=== PATIENT | male | born 1965 | race Two or more races ===

== ENCOUNTER 2018-09-16 10:20 | Emergency (ER) | payer OTHER ==
[~2018-09-16] VITALS: Ht 165.1 cm; Wt 72.6 kg
[~2018-09-16 10:20] MED LIST: SUSTIVA; TRUVADA TABLET1 TAB PO
== END 2018-09-16 14:39 | disposition home or self-care (01) ==
LOC: ER 10:20
DX: B34.9 Viral infection, unspecified (principal)

== ENCOUNTER 2022-07-11 20:45 | Emergency (ER) | payer OTHER ==
[~2022-07-11] VITALS: Ht 165.1 cm; Wt 74.8 kg
[2022-07-11] MEDS ORDERED: CRESTOR10 MG PO (21:01)
== END 2022-07-12 00:44 | disposition home or self-care (01) ==
LOC: ER 20:45
DX: R25.3 Fasciculation (principal); E78.00 Pure hypercholesterolemia, unspecified